=== PATIENT | male | born 1985 | race Caucasian/White ===

== ENCOUNTER 2025-03-12 12:41 | Emergency (ER) | payer OTHER ==
[2025-03-12 13:01] VITALS: TEMP 97
[2025-03-12 13:05] VITALS: O2SAT 98
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
[2025-03-12 13:57] VITALS: BP 130/86; PULSE 78; RESP 14
== END 2025-03-12 13:57 | disposition home or self-care (01) ==
LOC: ED 12:41
DX: S39.012A Strain of muscle, fascia and tendon of lower back, initial encounter (principal); S50.01XA Contusion of right elbow, initial encounter; V89.2XXA Person injured in unspecified motor-vehicle accident, traffic, initial encounter; M25.552 Pain in left hip; Z79.899 Other long term (current) drug therapy; Z72.0 Tobacco use